=== PATIENT | female | born 1970 | race Caucasian/White ===

== ENCOUNTER 2020-05-02 01:23 | Outpatient (CLI) | payer BC, SELFPAY ==
[2020-05-02 16:17] LABS: SARS-CoV-2 RNA PCR Negative
== END 2020-05-02 01:24 | disposition home or self-care (01) ==
LOC: ANHCOVIDDT 01:24
PROVIDERS: PCP Internal Medicine; Visit Provider Obstetrics & Gynecology
DX: Z01.812 Encounter for preprocedural laboratory examination (principal); Z20.828 Contact with and (suspected) exposure to other viral communicable diseases
CPT/HCPCS: 87635; C9803; U0003

== ENCOUNTER 2020-05-04 00:12 | Day surgery (SDC) | payer BC, SELFPAY ==
[2020-04-22 13:45] VITALS: BMI 22.0
[2020-05-04 11:30] VITALS: BP 136/88; PULSE 65; RESP 16; TEMP 36.6; O2SAT 100
[2020-05-04] MEDS: LACTATED RINGERS 1,000 ML 30 ML IV CONT ×2 (11:35→14:00)
[2020-05-04] MEDS: ACETAMINOPHEN 500 MG TABLET 1000 MG PO (11:35)
--- NOTE | 2020-05-04 12:01 | PM.IMHP ---
H&P: HPI History of Present Illness Date/Time: 05/04/20 12:01 Chief complaint: post menopausal bleeding Narrative: Melody Rodrigues is a 49 year old female evaluation of postmenopausal bleeding/endometrial abnormality. Review of Systems Review of Systems: All systems reviewed & are unremarkable except as noted in HPI and below PMFSH Family History Family History Father Family history of coronary artery disease Mother Family history of elevated blood lipids Other Cerebrovascular accident Diabetes mellitus Family history of malignant neoplasm of ovary Hypertension Social History Social History Smoking status: Never smoker Second hand tobacco smoke exposure: No Alcohol intake: current Drinks per week: 7 Spiritual care concerns: No Meds Home Medications and Allergies Home Medications Medication Instructions Recorded Confirmed Type estradiol-norethindrone acet 1 tablet PO DAILY 04/22/20 05/04/20 History multivitamin 1 tablet PO DAILY 04/22/20 05/04/20 History paroxetine HCl 20 mg tablet 20 mg PO DAILY #90 tablet 04/26/20 05/04/20 Rx Allergies Allergy/AdvReac Type Severity Reaction Status Date / Time No Known Allergies Allergy Unverified 05/04/20 11:19 Vital Signs Vital Signs - 24 hr 05/04/20 11:30 Temperature 36.6 C Pulse Rate 65 Respiratory Rate 16 Blood Pressure 136/88 Pulse Oximetry 100 Exam Const: General: no acute distress Resp: Auscultation: clear to auscultation bilaterally Cardio: Rate: regular rate Rhythm: regular rhythm GI: GI Palp: Yes Soft to palpation : External Female Exam: normal external appearance Assessment and Plan Assessment and plan (1) Postmenopausal bleeding: Code(s): N95.0 - Postmenopausal bleeding Status: Acute Additional Plan hscope/D&C
--- NOTE | 2020-05-04 12:02 | WPDHPUPDATE1 ---
History and Physical Update Update Date/Time: 05/04/20 12:02 History and Physical has been reviewed, including an updated exam of the patient. There are NO changes in the patient's condition. Risks, benefits, and alternatives have been discussed and questions answered. Patient agrees to proceed with procedure.
--- NOTE | 2020-05-04 13:05 | WPDANESEPPF ---
Anes - Initial Pre Proc Eval Procedure: Operation Date: 05/04/20 13:00 Proposed Procedures p Hysteroscopy, Dilation and Curettage - Thom Trevizo MD Date/Time: 05/04/20 13:05 Surgeon: Thom Trevizo MD Pre Op Diagnosis: post menopausal bleeding Patient Data Age: 49 Gender: F Height: 5 ft 8 in Weight: 66 kg Last Vital Signs Temp 36.6 C 05/04/20 11:30 Pulse 65 05/04/20 11:30 Resp 16 05/04/20 11:30 BP 136/88 05/04/20 11:30 Pulse Ox 100 05/04/20 11:30 Allergies Allergy/AdvReac Type Severity Reaction Status Date / Time No Known Allergies Allergy Unverified 05/04/20 11:19 Home Medications Medication Instructions Recorded Confirmed Type estradiol-norethindrone acet 1 tablet PO DAILY 04/22/20 05/04/20 History multivitamin 1 tablet PO DAILY 04/22/20 05/04/20 History paroxetine HCl 20 mg tablet 20 mg PO DAILY #90 tablet 04/26/20 05/04/20 Rx Patient hx anesthesia problems: none Family hx anesthesia problems: none PMFSH Family History Family History Father Family history of coronary artery disease Mother Family history of elevated blood lipids Other Cerebrovascular accident Diabetes mellitus Family history of malignant neoplasm of ovary Hypertension Social History Social History Smoking status: Never smoker Second hand tobacco smoke exposure: No Alcohol intake: current Drinks per week: 7 Spiritual care concerns: No Anes - Eval Final PreProcedure Day of Procedure 05/04/20 13:05 Patient weight: normal Heart: regular rate and rhythm Lungs: clear to auscultation Airway: Mallampati scale class II Neurological: alert and oriented Last oral intake: >/= 8 hours ASA classification: II Emergent: no Anesthetic plan: proceed Anesthesia type and monitoring: general GIVS and standard monitoring Informed Consent: The patient's anesthetic plan and its attendant risks and benefits were discussed with the patient/family/POA. Questions were solicited and answers provided to the satisfaction of the patient/family/POA.
--- NOTE | 2020-05-04 13:54 | PM.OP ---
Procedure Note - Brief Procedure Note - Brief Date of procedure: 05/04/20 Pre-op diagnosis: post menopausal bleeding Post-op diagnosis: other (1. Postmenopausal bleeding 2. Uterine fibroid) Procedure performed: 1. Hysteroscopy 2. Myomectomy Description of procedure: patient prepped and draped in usual manner for this procedure. Cervix was dilated to allow the hysteroscope to place which did reveal endometrial fibroid. Using the MyoSure instrument this removed in total and without difficulty. There was no significant bleeding at this point seizure was considered terminated. Anesthesia: GLMA Surgeon: Thom Trevizo MD Estimated blood loss (mL): 10 Drains: No Packing: No Pathology: yes Complications: No immediate complications Condition: stable Findings: Endometrial fibroid.
[2020-05-04 14:05] VITALS: BP 133/85; PULSE 65; RESP 12
[2020-05-04 14:35] VITALS: BP 142/86; PULSE 56; RESP 14
== END 2020-05-04 15:00 | disposition home or self-care (01) ==
PROVIDERS: PCP Internal Medicine; Visit Provider Obstetrics & Gynecology
PROC: 0U5B8ZZ Destruction of Endometrium, Via Natural or Artificial Opening Endoscopic (ICD-10-PCS; CPT 58563; principal; 2020-05-04 13:00)
DX: N95.0 Postmenopausal bleeding (principal); D25.9 Leiomyoma of uterus, unspecified
CPT/HCPCS: 58561; 88305; A9270; J2250; J2405; J2704; J3010; J7030; J7120

== ENCOUNTER 2020-12-22 15:59 | Outpatient (CLI) | payer OTHER, SELFPAY ==
--- NOTE | ~2020-12-22 | MM_ITS ---
EXAMINATION: MM screening [facility] HISTORY: Screening TECHNIQUE: Craniocaudal and mediolateral oblique 3-D tomosynthesis images were obtained and synthetic 2-D images were generated. CAD analysis was submitted and interpreted. COMPARISON: Comparison to multiple prior studies sequentially, with oldest reviewed study dated 12/2012. BREAST PARENCHYMAL COMPOSITION: The breasts are extremely dense, which lowers the sensitivity of mamm ography. FINDINGS: There is no evidence of suspicious mass, calcification, or architectural distortion to sugg est malignancy in either breast. There has been no suspicious interval change. IMPRESSION: 1. No mammographic evidence of malignancy. 2. Recommend routine screening mammography in one year. BI-RADS Category 1: Negative Reviewed, dictated and finalized at location A.
== END 2020-12-22 16:00 | disposition home or self-care (01) ==
PROVIDERS: PCP Internal Medicine; Visit Provider Obstetrics & Gynecology
DX: Z12.31 Encounter for screening mammogram for malignant neoplasm of breast (principal)
CPT/HCPCS: 77063; 77067

== ENCOUNTER 2021-05-30 07:04 | Outpatient (CLI) | payer OTHER, SELFPAY ==
[2021-05-30 07:40] LABS: Alanine Aminotransferase 34 U/L (4-35); Alkaline Phosphatase 61 U/L (38-126); Anion Gap 9 mmol/L (8-16); Aspartate Amino Transferase 39 U/L (14-36); Bilirubin,Total 0.6 mg/dL (0.2-1.3); Blood Urea Nitrogen 13 mg/dL (7-17); Calcium 9.8 mg/dL (8.4-10.2); Carbon Dioxide 32 mmol/L (22-30); Chloride 99 mmol/L (98-107); Cholesterol 211 mg/dL (0-200); Estimated Glomerular Filt Rate > 60; Glucose 98 mg/dL (65-110); HDL Direct 77 mg/dL; Sodium 140 mmol/L (137-145); Triglycerides 114 mg/dL (<150)
[2021-05-30 07:51] LABS: LDL Cholesterol Direct 98 mg/dL
== END 2021-05-30 07:05 | disposition home or self-care (01) ==
PROVIDERS: PCP Internal Medicine; Visit Provider Internal Medicine
DX: E78.5 Hyperlipidemia, unspecified (principal); R03.0 Elevated blood-pressure reading, without diagnosis of hypertension; Z51.81 Encounter for therapeutic drug level monitoring; Z79.899 Other long term (current) drug therapy
CPT/HCPCS: 36415; 80053; 80061

== ENCOUNTER 2021-12-01 07:39 | Outpatient (CLI) | payer OTHER, SELFPAY ==
[2021-12-01 08:14] LABS: Alanine Aminotransferase 22 U/L (4-35); Albumin Level 4.3 g/dL (3.5-5.1); Alkaline Phosphatase 56 U/L (38-126); Anion Gap 5 mmol/L (8-16); Aspartate Amino Transferase 35 U/L (14-36); Bilirubin,Total 0.8 mg/dL (0.2-1.3); Blood Urea Nitrogen 7 mg/dL (7-17); Calcium 8.6 mg/dL (8.4-10.2); Carbon Dioxide 28 mmol/L (22-30); Chloride 97 mmol/L (98-107); Cholesterol 247 mg/dL (0-200); Estimated Glomerular Filt Rate > 60; Glucose 97 mg/dL (65-110); HDL Direct 59 mg/dL; Potassium 4.1 mmol/L (3.4-5.0); Sodium 130 mmol/L (137-145); Triglycerides 98 mg/dL (<150)
[2021-12-01 08:25] LABS: LDL Cholesterol Direct 116 mg/dL
== END 2021-12-01 07:40 | disposition home or self-care (01) ==
LOC: ANHLAB 07:41
PROVIDERS: PCP Internal Medicine; Visit Provider Internal Medicine
DX: E78.5 Hyperlipidemia, unspecified (principal); Z13.6 Encounter for screening for cardiovascular disorders; Z51.81 Encounter for therapeutic drug level monitoring; Z79.899 Other long term (current) drug therapy
CPT/HCPCS: 36415; 80053; 80061

== ENCOUNTER → 2021-12-19 00:48 | Outpatient (CLI) | payer OTHER, SELFPAY ==
[2021-12-19 12:35] LABS: Influenza A QL RT-PCR Negative (Negative); Influenza B QL RT-PCR Negative (Negative); SARS-CoV-2 RNA PCR Positive
== END ==
PROVIDERS: PCP Internal Medicine; Visit Provider Internal Medicine
DX: U07.1 COVID-19 (principal)
CPT/HCPCS: 87502; C9803; U0003; U0005

== ENCOUNTER 2022-03-10 10:11 | Outpatient (CLI) | payer OTHER, SELFPAY ==
--- NOTE | ~2022-03-10 | MM_ITS ---
EXAMINATION: MM screening [facility] w gonzalez HISTORY: Screening mammogram TECHNIQUE: Craniocaudal and mediolateral oblique 3-D tomosynthesis images were obtained and synthetic 2-D images were generated. CAD analysis was submitted and interpreted. COMPARISON: 12/22/2020, 10/31/2018 BREAST PARENCHYMAL COMPOSITION: The breasts are heterogeneously dense, which may obscure small masses . FINDINGS: There is no suspicious mass, calcification, or architectural distortion to suggest malignan cy in either breast. There has been no suspicious interval change. IMPRESSION: 1. No mammographic evidence of malignancy. 2. Recommend routine screening mammography in one year. BI-RADS Category 1: Negative Reviewed, dictated and finalized at location A.
== END 2022-03-10 10:12 | disposition home or self-care (01) ==
PROVIDERS: PCP Internal Medicine; Visit Provider Obstetrics & Gynecology
DX: Z12.31 Encounter for screening mammogram for malignant neoplasm of breast (principal)
CPT/HCPCS: 77063; 77067

== ENCOUNTER 2022-05-06 13:47 | Emergency (ER) | payer OTHER, SELFPAY ==
[2022-05-06 13:57] VITALS: BP 147/92; PULSE 82; RESP 16; TEMP 36.6; O2SAT 98
--- NOTE | 2022-05-06 13:58 | ED.SKABFB ---
HPI - Skin/Abscess/Foreign Bdy General Chief complaint: Extremity Problem,Nontraumatic Stated complaint: Right Foot Pain Time Seen by Provider: 05/06/22 13:59 Source: patient, RN notes reviewed and old records reviewed Mode of arrival: ambulatory Limitations: no limitations History of Present Illness HPI narrative: 51-year-old female presents to the [facility] with complaints of foot pain. Has multiple open wounds to the dorsal aspect of foot. Wound to the right dorsal foot, bleeding. The dorsal aspect, not circumferential. Minor amount of swelling noted. Positive pedal pulse. Sensation intact in all 5 toes and capillary refill under 2 seconds. Related Data Home Medications Medication Instructions Recorded Confirmed multivitamin 1 tablet PO DAILY 04/22/20 05/06/22 Allergies Allergy/AdvReac Type Severity Reaction Status Date / Time No Known Allergies Allergy Verified 05/06/22 13:56 Review of Systems Review of Systems: All systems reviewed & are unremarkable except as noted in HPI and below Constitutional: Constitutional: Reports no additional constitutional complaints, Denies chills and Denies fever(s) Eyes: Eyes: Reports no additional eye complaints ENT: Reports system reviewed and no additional complaints, except as documented Cardiovascular: Cardiovascular: Reports no additional cardiovascular complaints Respiratory: Respiratory: Reports no additional respiratory complaints Gastrointestinal: Gastrointestinal: Reports no additional gastrointestinal complaints Musculoskeletal: Musculoskeletal: Reports no additional musculoskeletal complaints Integumentary/Breasts: Skin/Breast: Reports as per HPI Neurologic: Reports system reviewed and no additional complaints, except as documented Psychiatric: Psychiatric: Reports no additional psychiatric complaints Allergic/Immunologic: Allergic/Immunologic: Reports no additional allergic/immunologic complaints [facility] Past Medical History Medical History Anxiety Depression Eczema Hernia hernia repair 2009 Screening mammogram, encounter for Surgical History Surgical History History of gynecological procedure (04/28/14) DX hysteroscopy D&C- post menopausal bleeding History of gynecological procedure (03/19/13) d&C - thickened endometrial stripe - benign Family History Family History Father Family history of coronary artery disease Mother Family history of elevated blood lipids Sibling Thyroid cancer, Onset Age: 58 sister Other Cerebrovascular accident Diabetes mellitus Family history of malignant neoplasm of ovary Hypertension Social History Social History Smoking status: Never smoker Second hand tobacco smoke exposure: No Alcohol intake: current Drinks per week: 25 Substance use: never Substance use type: does not use Additional living arrangements comments: spouse 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 There is no relevant family history pertinent to the patient complaint. Exam Const: General: healthy appearing, no acute distress and alert Nutritional Appearance: well nourished Orientation/consciousness: patient oriented x3 Limitations: no limitations HENMT: Head: normal to inspection Ears: external ears normal Eyes: General: appearance normal, both eyes and all related structures Pupils: Equal, round and reactive pupils present Neck: Neck: normal visual inspection, no lymphadenopathy
[2022-05-06 13:59] VITALS: BP 147/92; PULSE 82; RESP 16; TEMP 36.6; O2SAT 98
== END 2022-05-06 14:13 | disposition home or self-care (01) ==
PROVIDERS: Emergency Provider Nurse Practitioner; PCP Internal Medicine
DX: L03.115 Cellulitis of right lower limb (principal)
CPT/HCPCS: 99213; G0463

== ENCOUNTER 2022-05-09 15:33 | Outpatient (CLI) | payer OTHER, SELFPAY ==
[2022-05-09 16:27] LABS: Alanine Aminotransferase 49 U/L (6-35); Alkaline Phosphatase 78 U/L (38-126); Anion Gap 14 mmol/L (8-16); Aspartate Amino Transferase 62 U/L (14-36); Bilirubin,Total 0.4 mg/dL (0.2-1.3); Blood Urea Nitrogen 15 mg/dL (7-17); Calcium 9.9 mg/dL (8.4-10.2); Carbon Dioxide 26 mmol/L (22-30); Chloride 96 mmol/L (98-107); Estimated Glomerular Filt Rate > 60; Glucose 107 mg/dL (65-110); HDL Direct 82 mg/dL; Potassium 4.4 mmol/L (3.4-5.0); Sodium 136 mmol/L (137-145); Triglycerides 220 mg/dL (<150)
[2022-05-09 16:29] LABS: LDL Cholesterol Direct 208 mg/dL
[2022-05-09 16:42] LABS: Vitamin D 25 Hydroxy 37.4 ng/mL
[2022-05-09 21:05] LABS: Cholesterol 364 mg/dL (0-200)
== END 2022-05-09 15:34 | disposition home or self-care (01) ==
LOC: ANHLAB 15:35
PROVIDERS: PCP Internal Medicine; Visit Provider Nurse Practitioner
DX: E78.00 Pure hypercholesterolemia, unspecified (principal); F32.A Depression, unspecified; Z13.21 Encounter for screening for nutritional disorder
CPT/HCPCS: 36415; 80053; 80061; 82306; 84443

== ENCOUNTER 2022-11-26 07:48 | Outpatient (CLI) | payer OTHER, SELFPAY ==
[2022-11-26 08:29] LABS: Hematocrit 39.1 % (37.0-47.0); Hemoglobin 13.4 g/dL (12.0-15.0); Mean Corpuscular HGB Conc 34.3 g/dl (32-36); Mean Corpuscular Hemoglobin 31.2 pg (26-34); Mean Corpuscular Volume 90.9 fl (80-100); Mean Platelet Volume 9.7 fl (7.4-10.4); Platelet Count Result 258 k/mm3 (150-375); Red Cell Distribution Width 11.9 % (11.5-14.5); White Blood Count 4.1 K/mm3 (4.5-10.0)
[2022-11-26 09:01] LABS: Alanine Aminotransferase 25 U/L (6-35); Albumin Level 4.5 g/dL (3.5-5.1); Alkaline Phosphatase 50 U/L (38-126); Anion Gap 5 mmol/L (8-16); Aspartate Amino Transferase 29 U/L (14-36); Bilirubin,Total 0.4 mg/dL (0.2-1.3); Blood Urea Nitrogen 9 mg/dL (7-17); Calcium 9.4 mg/dL (8.4-10.2); Carbon Dioxide 34 mmol/L (22-30); Chloride 99 mmol/L (98-107); Cholesterol 178 mg/dL (0-200); Estimated Glomerular Filt Rate > 60; Glucose 98 mg/dL (65-110); HDL Direct 53 mg/dL; Potassium 4.1 mmol/L (3.4-5.0); Sodium 138 mmol/L (137-145); Triglycerides 51 mg/dL (<150)
[2022-11-26 09:03] LABS: Hemoglobin A1C 5.2 % (<5.7)
[2022-11-26 09:12] LABS: LDL Cholesterol Direct 82 mg/dL
[2022-11-29 23:19] LABS: Vitamin D 1,25 (OH)2 Total 44 pg/mL (18-72); Vitamin D2 1,25 (OH)2 <8 pg/mL; Vitamin D3 1,25 (OH)2 44 pg/mL
== END 2022-11-26 07:49 | disposition home or self-care (01) ==
PROVIDERS: PCP Internal Medicine; Visit Provider Internal Medicine
DX: R79.89 Other specified abnormal findings of blood chemistry (principal); Z00.00 Encounter for general adult medical examination without abnormal findings; E78.00 Pure hypercholesterolemia, unspecified; F41.9 Anxiety disorder, unspecified
CPT/HCPCS: 36415; 80053; 80061; 82652; 83036; 84443; 85027

== ENCOUNTER 2023-06-11 15:53 | Outpatient (CLI) | payer OTHER, SELFPAY ==
--- NOTE | ~2023-06-11 | MM_ITS ---
EXAMINATION: MM screening [facility] BI w gonzalez HISTORY: Screening mammogram TECHNIQUE: Craniocaudal and mediolateral oblique 3-D tomosynthesis images were obtained and synthetic 2-D images were generated. CAD analysis was submitted and interpreted. COMPARISON: 03/10/2022, 12/22/2020, 10/31/2018 BREAST PARENCHYMAL COMPOSITION:The breasts are heterogeneously dense, which may obscure small masses. FINDINGS: No suspicious mass, calcification, or architectural distortion are identified in either alyson ast to suggest malignancy. There has been no suspicious interval change. IMPRESSION: No mammographic evidence of malignancy. Recommend routine screening mammography in one year. BI-RADS Category 1: Negative Reviewed, dictated and finalized at location .
== END 2023-06-11 15:54 | disposition home or self-care (01) ==
PROVIDERS: PCP Internal Medicine; Visit Provider Obstetrics & Gynecology
DX: Z12.31 Encounter for screening mammogram for malignant neoplasm of breast (principal)
CPT/HCPCS: 77063; 77067

== ENCOUNTER 2023-07-23 06:58 | Outpatient (CLI) | payer OTHER, SELFPAY ==
[2023-07-23 23:20] LABS: Alanine Aminotransferase 23 U/L (6-35); Albumin Level 4.2 g/dL (3.5-5.1); Alkaline Phosphatase 46 U/L (38-126); Anion Gap 7 mmol/L (8-16); Aspartate Amino Transferase 28 U/L (14-36); Bilirubin,Total 0.4 mg/dL (0.2-1.3); Blood Urea Nitrogen 12 mg/dL (7-17); Calcium 9.2 mg/dL (8.4-10.2); Carbon Dioxide 31 mmol/L (22-30); Chloride 101 mmol/L (98-107); Cholesterol 177 mg/dL (0-200); Estimated Glomerular Filt Rate > 60; Glucose 95 mg/dL (65-110); HDL Direct 48 mg/dL; Potassium 4.3 mmol/L (3.4-5.0); Sodium 139 mmol/L (137-145); Triglycerides 68 mg/dL (<150)
[2023-07-23 23:31] LABS: LDL Cholesterol Direct 91 mg/dL
== END 2023-07-23 06:59 | disposition home or self-care (01) ==
LOC: ANHLAB 07:00
PROVIDERS: PCP Nurse Practitioner; Visit Provider Nurse Practitioner
DX: E78.5 Hyperlipidemia, unspecified (principal)
CPT/HCPCS: 36415; 80053; 80061

== ENCOUNTER 2023-12-17 07:09 | Outpatient (CLI) | payer OTHER, SELFPAY ==
[2023-12-17 07:48] LABS: Anion Gap 5 mmol/L (4-12); Blood Urea Nitrogen 13 mg/dL (7-17); Calcium 9.2 mg/dL (8.4-10.2); Carbon Dioxide 28 mmol/L (22-30); Chloride 103 mmol/L (98-107); Estimated Glomerular Filt Rate > 60; Glucose 99 mg/dL (65-110); Potassium 4.3 mmol/L (3.4-5.0); Sodium 136 mmol/L (137-145)
== END 2023-12-17 07:10 | disposition home or self-care (01) ==
LOC: ANHLAB 07:10
PROVIDERS: PCP Nurse Practitioner; Visit Provider Family Medicine
DX: E87.1 Hypo-osmolality and hyponatremia (principal)
CPT/HCPCS: 36415; 80048

== ENCOUNTER 2024-01-22 17:10 | Emergency (ER) | payer OTHER, SELFPAY ==
[2024-01-22 17:18] VITALS: BP 131/71; PULSE 71; RESP 16; TEMP 37.2; O2SAT 97
--- NOTE | 2024-01-22 18:47 | ED.URI ---
HPI - URI/Sore Throat General Chief Complaint: Upper Respiratory Infection Stated Complaint: Sinus Time Seen by Provider: 01/22/24 18:48 Source: patient and RN notes reviewed Mode of arrival: ambulatory Limitations: no limitations History of Present Illness HPI Narrative: 53-year-old female presented for complaint of nasal congestion and cough for over 1 week. She states she had a few days of improvement before symptoms returned today. States cough is nonproductive chest feels tight. Took Mucinex today. Denies shortness of breath, wheezing nausea fevers or chills. MD elicited complaint: cough Related Data Allergies Allergy/AdvReac Type Severity Reaction Status Date / Time No Known Allergies Allergy Verified 12/18/23 07:07 Review of Systems Review of Systems: CONSTITUTIONAL: Reports malaise Denies chills, sweats, fever EYES: Denies visual changes, redness, or discharge ENT: Reports rhinorrhea, congestion, denies sinus pain, otalgia, sore throat CARDIOVASCULAR: Denies chest pain, palpitations, edema RESPIRATORY: Reports cough, post nasal drainage. Denies dyspnea GASTROINTESTINAL: Denies abdominal pain, nausea, vomiting, diarrhea MUSCULOSKELETAL: denies myalgia NEUROLOGIC: Denies headache PMFSH Past Medical History Medical History Anxiety Depression Eczema Hernia hernia repair 2010 Screening mammogram, encounter for Surgical History Surgical History History of gynecological procedure (04/28/14) DX hysteroscopy D&C- post menopausal bleeding History of gynecological procedure (03/19/13) d&C - thickened endometrial stripe - benign Family History Family History Father Family history of coronary artery disease Mother Family history of elevated blood lipids Sibling Thyroid cancer, Onset Age: 58 sister Other Cerebrovascular accident Diabetes mellitus Family history of malignant neoplasm of ovary Hypertension Social History Social History Smoking status: Never smoker Second hand tobacco smoke exposure: No Alcohol intake: current Drinks per week: 10 Substance use: never Substance use type: does not use Lack of Transportation: No Lack of Food: Never True Current Housing: I Have Housing Concerned About Future Housing: No Difficulty Paying Gas/Electric Bills: No Difficulty Paying for Meds: No Currently Unemployed: No Education: Bachelor's Degree Difficulty w/ Childcare or Family Care: No Living arrangements: other Additional living arrangements comments: spouse Occupation/Education: occupation 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 EYES: PERRLA, conjunctivae clear ENT: Mucous membranes moist. TM pearly wallace with dull light reflex bilaterally; no tragal tenderness. Oropharynx erythematous without lesions or exudate, no drooling, no hoarseness, no trismus, uvula midline. No tripod positioning, muffled voice, soft palate or pharyngeal wall bulging NECK: Supple. No lymphadenopathy CHEST: Clear to auscultation, breath sounds equal. No wheezing, rhonchi, rales, or stridor. No respiratory distress, speaks in full sentences. HEART: Regular rate and rhythm. No murmur heard. SKIN: Warm, dry, no rash. NEURO: Alert and oriented x3. PSYCH: Normal mood and affect Course Course Emergency Course: Patient is aware of diagnosis, understands and agrees to treatment plan. Anticipatory guidance given. Patient agrees to follow-up as directed and is aware of reasons to seek care at the emergen
== END 2024-01-22 19:05 | disposition home or self-care (01) ==
PROVIDERS: Emergency Provider Nurse Practitioner Family; PCP Family Medicine
DX: J32.9 Chronic sinusitis, unspecified (principal)
CPT/HCPCS: 99213; G0463

== ENCOUNTER 2024-06-25 15:38 | Outpatient (CLI) | payer OTHER, SELFPAY ==
--- NOTE | ~2024-06-25 | MM_ITS ---
EXAMINATION: MM screening [facility] w [facility] HISTORY: Screening TECHNIQUE: Craniocaudal and mediolateral oblique 3-D tomosynthesis images were obtained and synthetic 2-D images were generated. CAD analysis was submitted and interpreted. COMPARISON: Comparison to multiple prior studies sequentially, with oldest reviewed study dated 11/12. BREAST PARENCHYMAL COMPOSITION: Dense: The breasts are extremely dense, which lowers the sensitivity of mammography. FINDINGS: There is no evidence of suspicious mass, calcification, or architectural distortion to sugg est malignancy in either breast. There has been no suspicious interval change. IMPRESSION: 1. No mammographic evidence of malignancy. 2. Recommend routine screening mammography in one year. BI-RADS Category 1: Negative Reviewed, dictated and finalized at location B.
== END 2024-06-25 15:39 | disposition home or self-care (01) ==
LOC: ANHIMG 15:39
PROVIDERS: PCP Internal Medicine; Visit Provider Obstetrics & Gynecology
DX: Z12.31 Encounter for screening mammogram for malignant neoplasm of breast (principal)
CPT/HCPCS: 77063; 77067